=== PATIENT | female | born 1990 | race Caucasian/White ===

== ENCOUNTER 2017-08-24 08:20 | Day surgery (SDC) | payer OTHER ==
[2017-08-21 10:10] VITALS: BMI 20.5
[2017-08-24] MEDS ORDERED: PROPOFOL 20 ML ONE ×2 (08:52)
[2017-08-24 09:31] VITALS: TEMP 97.4
[2017-08-24 10:10] VITALS: BP 106/68; PULSE 72
--- NOTE | 2017-08-26 18:19 | PATH ---
Surgical Pathology Report Patient Name: [facility]. Rec. #: [id number] /Age/Gender: 1990 (Age: 27) / F Account: [id number] Location: U-ENDOSCOPY Taken: 08/24/2017 Received: 08/24/2017 Reported: 08/26/2017 Physicians: Bella Espinoza M.D. Specimen(s) Received A: BX DUODENUM B: BX ANTRUM C: BX GE JUNCTION Clinical History Preoperative diagnosis: Epigastric pain, bloating, heartburn Postoperative diagnosis: Atrophic gastritis, duodenitis Final Diagnosis A. DUODENUM, SECOND PORTION/BULB, BIOPSY: DUODENAL MUCOSA WITH PROMINENT LYMPHOID AGGREGATES. B. STOMACH, ANTRUM, BIOPSY: GASTRIC ANTRAL MUCOSA WITH MILD CHRONIC GASTRITIS. IMMUNOHISTOCHEMICAL STAIN FOR H. PYLORI IS NEGATIVE. C. GASTROESOPHAGEAL (GE) JUNCTION, BIOPSY: SQUAMOUS MUCOSA WITH VASCULAR CONGESTION AND CHANGES OF MILD TO MODERATE REFLUX ESOPHAGITIS. NO COLUMNAR MUCOSA, INTESTINAL METAPLASIA OR DYSPLASIA IDENTIFIED. Electronically Signed Andie Mitchell M.D. Gross Description A. Received in formalin labeled "biopsy duodenum second portion and bulb," is a 0.9 x 0.7 x 0.2 cm aggregate of rowell soft tissue fragments. The formalin is filtered and the specimen is entirely submitted in one cassette. B. Received in formalin, labeled "biopsy antrum" are 6 rowell, irregular portions of soft tissue ranging from 0.2-0.4 cm. in greatest dimension. The specimens are submitted in toto in one cassette. C. Received in formalin, labeled "biopsy GE junction" are 2 rowell, irregular portions of soft tissue measuring 0.2 and 0.3 cm. in greatest dimension. The specimens are submitted in toto in one cassette. DL08/24/2017 saudi08/24/2017
== END 2017-08-24 10:16 | disposition home or self-care (01) ==
LOC: JASU-ENDO 08:20
PROVIDERS: ATTEND Internal Medicine Gastroenterology
PROC: 0DB68ZX Excision of Stomach, Via Natural or Artificial Opening Endoscopic, Diagnostic (ICD-10-PCS; 2017-08-24)
PROC: 0DB28ZX Excision of Middle Esophagus, Via Natural or Artificial Opening Endoscopic, Diagnostic (ICD-10-PCS; 2017-08-24)
PROC: 0DB38ZX Excision of Lower Esophagus, Via Natural or Artificial Opening Endoscopic, Diagnostic (ICD-10-PCS; 2017-08-24)
PROC: 0DB98ZX Excision of Duodenum, Via Natural or Artificial Opening Endoscopic, Diagnostic (ICD-10-PCS; principal; 2017-08-24 08:45)
DX: K21.9 Gastro-esophageal reflux disease without esophagitis (principal); K29.80 Duodenitis without bleeding; K29.50 Unspecified chronic gastritis without bleeding
CPT/HCPCS: 84703; 88305-TC; 88342-TC